=== PATIENT | male | born 1995 | race Caucasian/White ===

== ENCOUNTER 2017-02-15 02:50 | Emergency (ER) | payer MEDICAID ==
[~2017-02-15] VITALS: Ht 167.6 cm; Wt 70.3 kg
[2017-02-15 03:07] VITALS: BP 150/90
--- NOTE | 2017-02-15 04:00 | NUR ---
PATIENT LEFT WITHOUT BEING SEEN BY DR. POMPA. NO FURTHER CARE PROVIDED FOR PATIENT.
== END 2017-02-15 04:00 | disposition left against medical advice (07) ==
LOC: MED 02:50
DX: S00.81XA Abrasion of other part of head, initial encounter (principal); Z53.21 Procedure and treatment not carried out due to patient leaving prior to being seen by health care provider; V00.131A Fall from skateboard, initial encounter; Y93.89 Activity, other specified; Y92.89 Other specified places as the place of occurrence of the external cause; Y99.8 Other external cause status